=== PATIENT | female | born 1950 | race Caucasian/White ===

== ENCOUNTER 2016-04-09 12:03 | Inpatient (IN) | payer MEDICARE, OTHER, MEDICAID ==
[~2016-04-09 12:03] MED LIST: ABILIFY10 MG PO; ACETAMINOPHEN500 M2 PO; ACIDOPHILUS1 EACH PO; ADVAIR 100-501 EACH PO; ADVIL200 M1 PO; ADVIL200 MG PO; AFRIN30 ML; ALLEGRA ALLERG180 M1 PO; AMOXICILLIN875 MG PO; AUGMENTIN 500-1 EACH PO; AYR SALINE NASA14 GM; BACITRACIN OINT28 G1 TOP; BACLOFEN10 M1 PO; BACLOFEN10 MG PO; BAZA PROTECT CR57 GM TP; BIOFREEZE118 M1 TOP; BROMFENAC SODI1.7 ML EACH EYE; CATHFLO ACT2 MG/VIAL IJ; CELEBREX200 M1 PO; CELEBREX200 MG PO; CELEXA20 M1 PO; CETIRIZINE HCL10 M1 PO; CLONAZEPAM0.5 M1 PO; COLACE100 M1 PO; COLACE100 MG PO; COLACE150 MG/15 PO; COMBIVENT INH14.7 G1 IH; CONCERTA18 MG PO; COSOPT EYE DROP10 ML EACH EYE; COSOPT EYE DROPS5 ML BOTH EYES; COSOPT EYE DROPS5 ML EACH EYE; COUMADIN1 M1 PO; COUMADIN2 M1 PO; COUMADIN3 MG PO; COUMADIN5 M1 PO; CRANBERRY200 M1 PO; CULTURELLE1 CA1 NG; CULTURELLE1 CA1 PO; CULTURELLE1 EAC1 PO; CYCLOBENZAPRINE10 MG PO; CYMBALTA30 MG PO; CYMBALTA60 M1 PO; DELSYM30 MG/5 M PO; DELTASONE10 MG PO; DESITIN56 GM TP; DITROPAN XL10 M1 PO; DULCOLAX10 MG/SUPP RC; DUONEB 2.5-0.5MG3 M1 AERO NEB; EMBRIL; ENBREL25 MG/KIT; ENBREL50 MG/ML; FLUTICASONE PRO16 G1; GABAPENTIN400 M1 PO; GAS GONE80 MG PO; GLUCAGON EME1 MG/KIT IJ; GUAIFENESIN200 M3 PO; HM MILK OF400 MG/5 M PO; HYDROCODON-ACE1 EA16 PO; HYDROCODON-ACE1 EAC7 PO; IMODIUM2 MG PO; IPRATR-ALBUTEROL3 ML IH; KEPPRA100 MG/ML PO; KEPPRA250 M1 PO; KEPPRA250 MG PO; KEPPRA500 M1 NG; KEPPRA500 M1 PO; KEPPRA500 M3 PO; LATUDA20 M1 PO; LATUDA40 M1 PO; LEVETIRACETAM500 M2 PO; LIDOCAINE PATCH; LIPITOR20 M1 PO; LISINOPRIL10 MG PO; LOPERAMIDE HCL2 MG PO; LOVENOX100 MG/ML SQ; LUMIGAN2.5 M2 EACH EYE; LUNESTA3 MG; MACROBID100 MG/CA1 PO; METHOTREXATE; METHOTREXATE2.5 MG; METOPROLOL SUCC50 MG PO; MIRALAX17 G1 PO; MIRALAX17 G2 PO; MIRALAX17 GM PO; MIRTAZAPINE15 MG PO; MUPIROCIN15 G2 TOP; MYCOSTATIN15 GM TP; NASAL SPRAY30 ML NS; NEOSPORIN OIN28.3 GM TP; NEURONTIN100 MG PO; NEURONTIN300 MG PO; NEURONTIN600 M1 PO; NEXIUM40 MG; NICODERM CQ1 EACH TD; NORCO 10/325 TA1 TAB; NORCO 10/325 TA1 TAB PO; NORCO 5-325 TA1 EACH PO; NORCO 5/325 TAB1 TAB PO; NORCO 5/3251 TA1 PO; NORCO 7.5/3251 TA1 PO; NUCYNTA50 MG PO; OMEPRAZOLE20 M2 PO; OMEPRAZOLE20 MG PO; OMEPRAZOLE40 MG PO; OXYCONTIN10 M1 PO; OXYGEN; POTASSIUM CHLO20 ME3 PO; PREDNISONE10 M1 PO; PREDNISONE10 MG PO; PROLIA60 MG/1 M1 SQ; PROMETHAZINE25 MG; PROTONIX40 M2 PO; REMERON30 MG PO; RESTORIL15 MG PO; REXULTI1 MG PO; RINSE; RITALIN10 MG PO; RITALIN5 M1 PO; RITALIN5 MG PO; ROBITUSSIN DM118 ML PO; ROXICET 5-3251 EACH PO; ROXICODONE5 MG/TAB GT; SENNA PLUS TAB1 EAC1 PO; SENNA PLUS TAB1 EACH PO; SENNA8.6 M2 PO; SINGULAIR10 M1 PO; SODIUM CHLORIDE10 ML FL; SPIRIVA RESPIMAT4 G1 INH; SYMBICORT 160-1 PUFF INH; TIMOLOL; TIMOPTIC2.5 M; TIMOPTIC2.5 ML; TOPROL XL25 MG PO; TOPROL XL50 M1 PO; TRUSOPT10 ML EACH EYE; TYLENOL EXTRA500 M1 PO; TYLENOL160 MG/51 NG; TYLENOL325 M1 PO; ULTRAM50 M1 PO; ULTRAM50 MG PO; VESICARE5 MG PO; VITAMIN C500 M3 PO; VITAMIN D31000 UNI4 PO; VITAMIN D31000 UNIT PO; VITAMIN D32000 UNI2 PO; WARFARIN SODIU2.5 MG PO; WARFARIN SODIUM2 M1 PO; ZEGERID 40 MG P1 PKT PO; ZOFRAN4 M1 PO; ZYRTEC10 M7 PO; [UNRECOGNIZED DRUG - OTHER] TOP; lidocaine patch TOP
[2016-04-09 12:50] LABS: BASO % 0.1 % (0-2); EOS % 0.7 % (0-7); EOSINOPHIL ABSOLUTE COUNT 0.1 tho/cmm (0.0-0.7); HCT-HEMATOCRIT 41.5 % (34.0-49.0); HGB-HEMOGLOBIN 13.2 gm/dl (12.0-15.5); IMMATURE GRANULOCYTES ABSOLUTE 0.02 tho/cmm (0-0.03); IMMATURE GRANULOCYTES PERCENT 0.2 % (0-0.3); LYMPH % 5.5 % (20-45); LYMPH ABSOLUTE COUNT 0.7 tho/cmm (0.8-4.5); MCH (MEAN CORPUSCULAR HGB) 31.1 pg (28.0-32.0); MCHC MEAN CORPUSCULAR HGB CONC 31.8 % (32.0-36.0); MCV (MEAN CELL VOLUME) 97.9 fl (82.0-96.0); MEAN PLATELET VOLUME 9.8 cmc (9.4-12.4); MONO % 1.7 % (0-12); MONOCYTE ABSOLUTE COUNT 0.2 tho/cmm (0.0-1.2); NEUTROPHIL ABSOLUTE COUNT 11.1 tho/cmm (1.6-8.0); NEUTROPHIL-AUTOMATED 11.1 tho/cmm (1.6-8.0); NEUTROPHILS % 91.8 % (40-80); PLATELET COUNT 250 tho/cmm (150-450); RED BLOOD COUNT 4.24 mil/cmm (4.00-5.20); WHITE BLOOD COUNT 12.1 tho/cmm (4.0-10.0)
[2016-04-09 12:55] LABS: INR 1.9 INR (0.9-1.1)
[2016-04-09] MEDS ORDERED: VESICARE10 M1 PO (13:00)
[2016-04-09] MEDS ORDERED: DANTRIUM PO (13:00)
[2016-04-09] MEDS ORDERED: MYRBETRIQ50 M1 PO (13:00)
[2016-04-09 13:01] LABS: ABG CO2 ARTERIAL 26 mmol/L (21-27); ARTERIAL BLD GAS O2 SATURATION 96 % (95-98); ARTERIAL BLOOD GAS PCO2 45 mmHg (32-45); ARTERIAL PO2 83 mmHg (70-100); BICARBONATE 25 mmol/L (21-28); BLOOD GAS BASE EXCESS -1 mM/L (-/+3); PH 7.36 Units (7.35-7.45)
[2016-04-09] MEDS ORDERED: FLUTICASONE PRO16 G1 (13:01)
[2016-04-09] MEDS ORDERED: NEURONTIN600 M1 PO (13:02)
[2016-04-09] MEDS ORDERED: VITAMIN D5000 UNI2 PO (13:04)
[2016-04-09 13:08] LABS: ALB/GLOB RATIO 0.5 (0.8-2.0); ALBUMIN 2.5 g/dl (3.5-5.0); ALKALINE PHOSPHATASE 89 U/L (33-138); ALT/SGPT 40 U/L (12-78); ANION GAP 14 mmol/L (0-20); AST/SGOT 37 U/L (10-40); BILIRUBIN,TOTAL 0.3 mg/dl (0-1.5); BLOOD UREA NITROGEN 13 mg/dl (6-24); CALCIUM 8.9 mg/dl (8.5-10.5); CARBON DIOXIDE-VENOUS 25 mmol/L (22-32); CHLORIDE 108 mmol/l (96-110); CREATININE 0.69 mg/dl (0.50-1.10); GLUCOSE 144 mg/dL (70-110); POTASSIUM 4.3 mmol/L (3.7-5.1); SODIUM 143 mmol/L (135-145); eGFR VALUE FOR BLACK >90 mL/Min
[2016-04-09 13:37] LABS: PROCALCITONIN 0.14 ng/ml (0.05-0.09)
[2016-04-09] MEDS ORDERED: AZELASTINE137 MCG/01 (13:45)
[2016-04-09 13:53] LABS: URINE BILIRUBIN SMALL (NEG); URINE BLOOD MODERATE (NEG); URINE GLUCOSE (UA) NEGATIVE (NEG); URINE KETONE SMALL (NEG); URINE LEUKOCYTE ESTERASE POSITIVE (NEG); URINE NITRITE NEGATIVE (NEG); URINE PROTEIN MODERATE (NEG)
[2016-04-09 13:56] LABS: URINE APPEARANCE HAZY; URINE COLOR YELLOW
[2016-04-09 14:04] LABS: URINE AMORPHOUS 2+; URINE BACTERIA 1+; URINE MUCUS 1+
[2016-04-09 14:05] LABS: URINE WBC 25-30 /[HPF] (0-5)
[2016-04-10 04:24] LABS: BASO % 0.1 % (0-2); EOS % 1.8 % (0-7); EOSINOPHIL ABSOLUTE COUNT 0.1 tho/cmm (0.0-0.7); HGB-HEMOGLOBIN 11.1 gm/dl (12.0-15.5); IMMATURE GRANULOCYTES ABSOLUTE 0.03 tho/cmm (0-0.03); IMMATURE GRANULOCYTES PERCENT 0.4 % (0-0.3); LYMPH % 8.9 % (20-45); LYMPH ABSOLUTE COUNT 0.7 tho/cmm (0.8-4.5); MCH (MEAN CORPUSCULAR HGB) 30.6 pg (28.0-32.0); MCHC MEAN CORPUSCULAR HGB CONC 30.8 % (32.0-36.0); MCV (MEAN CELL VOLUME) 99.2 fl (82.0-96.0); MEAN PLATELET VOLUME 9.8 cmc (9.4-12.4); MONO % 3.6 % (0-12); MONOCYTE ABSOLUTE COUNT 0.3 tho/cmm (0.0-1.2); NEUTROPHIL ABSOLUTE COUNT 6.3 tho/cmm (1.6-8.0); NEUTROPHIL-AUTOMATED 6.3 tho/cmm (1.6-8.0); NEUTROPHILS % 85.2 % (40-80); PLATELET COUNT 180 tho/cmm (150-450); RED BLOOD COUNT 3.63 mil/cmm (4.00-5.20); RED CELL DISTRIBUTION WIDTH 15.2 % (12.4-16.4); WHITE BLOOD COUNT 7.4 tho/cmm (4.0-10.0)
[2016-04-10 04:28] LABS: INR 1.8 INR (0.9-1.1); PROTHROMBIN TIME 21.5 SECONDS (9.0-13.6)
[2016-04-10 04:35] LABS: ANION GAP 10 mmol/L (0-20); BLOOD UREA NITROGEN 10 mg/dl (6-24); CARBON DIOXIDE-VENOUS 26 mmol/L (22-32); CHLORIDE 108 mmol/l (96-110); CREATININE 0.52 mg/dl (0.50-1.10); GLUCOSE 121 mg/dL (70-110); POTASSIUM 3.9 mmol/L (3.7-5.1); SODIUM 140 mmol/L (135-145); eGFR VALUE FOR BLACK >90 mL/Min
[2016-04-10 16:13] LABS: ARTERIAL BLD GAS O2 SATURATION 94 % (95-98); PH 7.37 Units (7.35-7.45)
[2016-04-10 16:14] LABS: BASO % 0.1 % (0-2); EOSINOPHIL ABSOLUTE COUNT 0.1 tho/cmm (0.0-0.7); HGB-HEMOGLOBIN 11.3 gm/dl (12.0-15.5); IMMATURE GRANULOCYTES ABSOLUTE 0.02 tho/cmm (0-0.03); IMMATURE GRANULOCYTES PERCENT 0.3 % (0-0.3); LYMPH % 12.8 % (20-45); LYMPH ABSOLUTE COUNT 0.9 tho/cmm (0.8-4.5); MCH (MEAN CORPUSCULAR HGB) 30.7 pg (28.0-32.0); MCHC MEAN CORPUSCULAR HGB CONC 31.4 % (32.0-36.0); MCV (MEAN CELL VOLUME) 97.8 fl (82.0-96.0); MEAN PLATELET VOLUME 9.6 cmc (9.4-12.4); MONO % 3.8 % (0-12); MONOCYTE ABSOLUTE COUNT 0.3 tho/cmm (0.0-1.2); NEUTROPHIL ABSOLUTE COUNT 5.6 tho/cmm (1.6-8.0); NEUTROPHIL-AUTOMATED 5.6 tho/cmm (1.6-8.0); PLATELET COUNT 170 tho/cmm (150-450); RED BLOOD COUNT 3.68 mil/cmm (4.00-5.20); WHITE BLOOD COUNT 6.8 tho/cmm (4.0-10.0)
[2016-04-10 16:14] LABS: ABG CO2 ARTERIAL 30 mmol/L (21-27); ARTERIAL BLOOD GAS PCO2 51 mmHg (32-45); ARTERIAL PO2 66 mmHg (70-100); BICARBONATE 29 mmol/L (21-28); BLOOD GAS BASE EXCESS 3 mM/L (-/+3)
[2016-04-11 04:22] LABS: INR 1.7 INR (0.9-1.1); PROTHROMBIN TIME 20.1 SECONDS (9.0-13.6)
[2016-04-12 05:27] LABS: HGB-HEMOGLOBIN 11.5 gm/dl (12.0-15.5); PLATELET COUNT 205 tho/cmm (150-450)
[2016-04-12 05:28] LABS: INR 2.1 INR (0.9-1.1)
[2016-04-13 05:14] LABS: BASO % 0.1 % (0-2); HGB-HEMOGLOBIN 11.9 gm/dl (12.0-15.5); IMMATURE GRANULOCYTES ABSOLUTE 0.02 tho/cmm (0-0.03); IMMATURE GRANULOCYTES PERCENT 0.3 % (0-0.3); LYMPH % 9.3 % (20-45); LYMPH ABSOLUTE COUNT 0.7 tho/cmm (0.8-4.5); MCH (MEAN CORPUSCULAR HGB) 30.4 pg (28.0-32.0); MCHC MEAN CORPUSCULAR HGB CONC 31.3 % (32.0-36.0); MCV (MEAN CELL VOLUME) 97.2 fl (82.0-96.0); MEAN PLATELET VOLUME 9.9 cmc (9.4-12.4); MONO % 4.9 % (0-12); MONOCYTE ABSOLUTE COUNT 0.4 tho/cmm (0.0-1.2); NEUTROPHILS % 85.4 % (40-80); PLATELET COUNT 207 tho/cmm (150-450); RED BLOOD COUNT 3.91 mil/cmm (4.00-5.20); RED CELL DISTRIBUTION WIDTH 14.9 % (12.4-16.4); WHITE BLOOD COUNT 7.1 tho/cmm (4.0-10.0)
[2016-04-13 05:25] LABS: INR 2.1 INR (0.9-1.1); PROTHROMBIN TIME 25.4 SECONDS (9.0-13.6)
[2016-04-13 05:28] LABS: ANION GAP 10 mmol/L (0-20); BLOOD UREA NITROGEN 14 mg/dl (6-24); CALCIUM 8.4 mg/dl (8.5-10.5); CARBON DIOXIDE-VENOUS 32 mmol/L (22-32); CHLORIDE 105 mmol/l (96-110); GLUCOSE 176 mg/dL (70-110); POTASSIUM 3.9 mmol/L (3.7-5.1); SODIUM 143 mmol/L (135-145); eGFR VALUE FOR BLACK >90 mL/Min
[2016-04-13] MEDS ORDERED: NICOTINE PATCH1 EAC2 TP (18:27)
[2016-04-13] MEDS ORDERED: LEVAQUIN750 M1 PO (18:37)
[2016-04-13] MEDS ORDERED: PREDNISONE10 M1 PO (18:38)
== END 2016-04-13 19:04 | DRG 871 ==
LOC: EDMED 12:03 → EMR2 14:49 → PCUA 15:36
PROVIDERS: Emergency Medicine; Family Medicine; Hospitalist; ADMIT Hospitalist
PROC: 02HV33Z Insertion of Infusion Device into Superior Vena Cava, Percutaneous Approach (ICD-10-PCS; principal; 2016-04-09)
DX: A41.9 Sepsis, unspecified organism (principal); G93.40 Encephalopathy, unspecified; I50.32 Chronic diastolic (congestive) heart failure; J44.1 Chronic obstructive pulmonary disease with (acute) exacerbation; I11.0 Hypertensive heart disease with heart failure; M87.9 Osteonecrosis, unspecified; N39.0 Urinary tract infection, site not specified; E87.70 Fluid overload, unspecified; F32.9 Major depressive disorder, single episode, unspecified
CPT/HCPCS: A9537; C1751; J1650; J1940; J1956; J2543; J2930; J7030; J7512; Q9967